=== PATIENT | female | born 2000 | race Caucasian/White ===

== ENCOUNTER 2022-02-27 16:03 | Emergency (ER) | payer OTHER, SELFPAY ==
[2022-02-27 17:03] VITALS: BP 146/92; PULSE 70; RESP 16; TEMP 36.7; O2SAT 100; BMI 23.3
--- NOTE | 2022-02-27 17:10 | ED_ITS ---
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 There is a single puncture wound that was made by a feral cat. Patient appears well. Patient's last tetanus shot was when she was 15. Patient appears in mild to no pain. Review of Systems General: Reports: 10 or more systems reviewed and unremarkable except in HPI and below Resp: Denies: dyspnea GI: Denies: abdominal pain Skin/Breast: Reports: other (Puncture wound left thumb) COUNTS INCLUDE 234 BEDS AT THE [facility] ED Female Reproductive History: Date of last menstrual period: 02/07/22 Physical Exam Const: COMMON NORMALS: alert Neck/C-Spine: COMMON NORMALS: full ROM Resp: COMMON NORMALS: normal respiratory effort Cardio: COMMON NORMALS: regular rate RATE: regular rate : COMMON NORMALS: Yes no CVA tenderness BLADDER/KIDNEY EXAM: Yes no CVA tenderness Back/Pelvis: COMMON NORMALS: no CVA tenderness Extremity: LEFT UPPER EXTREMITY: Yes hand & digits (Superficial puncture wound distal left thumb) Left hand and digits: Yes inspection, Yes palpation and Yes ROM Neuro: SENSORIUM/ORIENTATION: Yes alert Skin: COMMON NORMALS: no rashes or lesions noted GENERAL SKIN EXAM: no rashes or lesions noted Course Vital Signs: Vital signs: Vital Signs Temperature 98.1 F 02/27/22 17:03 Pulse Rate 70 02/27/22 17:03 Respiratory Rate 16 02/27/22 17:03 Blood Pressure 146/92 02/27/22 17:03 Pulse Oximetry 100 02/27/22 17:03 MDM - Animal Bite Medical Decision Making Patient comes in for a animal bite to the distal left thumb. On exam there is a superficial puncture wound to the thumb. Patient has normal range of motion. Vital signs are normal. Differential diagnosis includes not limited to puncture wound, animal bite, need for prophylaxis tetanus, need for postexposure rabies treatment. Patient was given rabies immunoglobulin based on 20 mg/kg weight, tetanus was updated, rabies vaccine dosing was started. Patient will be covered with Augmentin 1 tablet twice a day for 7 days for prophylaxis antibiotic. Encourage fluids rest and follow-up with primary care. Discharge Plan Discharge Patient Disposition: Home Clinical Impression: Cat bite Condition: Stable Prescriptions: New amoxicillin-pot clavulanate 875-125 mg tablet 1 tab PO BID Qty: 14 0RF Discharge Orders: Discharge ED (Routine); Ordered 02/27/22 Ordered By: David Urena Discharge Diet: Usual diet Discharge Activity: Resume usual activity Patient Instructions: Animal Bite (ED), Rabies (ED) Activity Restrictions/Additional Instructions: You will need to complete the rabies postexposure vaccine protocol for dosing on days 3, 7, and 14. Take antibiotics as directed twice a day for 7 days. Use acetaminophen and ibuprofen for pain. Follow-up with primary care for further instructions. Return to ER for new concerns. Coding Level of Care Code ED Recovery Collector for Dioni Fwd Exam Detailed
[2022-02-27] MEDS: amoxicillin-clav 875-125 mg Tablet 1 TAB PO (17:26)
[2022-02-27] MEDS: tetanus-dipt-pertussis 0.5 mL SDV IM (17:28)
[2022-02-27 17:41] VITALS: BP 146/92; PULSE 70; RESP 16; TEMP 36.7; O2SAT 100
[2022-02-27] MEDS: rabies vaccine 2.5 unit SDV IM (18:12)
[2022-02-27 18:48] VITALS: BP 119/74; PULSE 70; RESP 16; O2SAT 99
== END 2022-02-27 18:50 | disposition home or self-care (01) ==
PROVIDERS: Emergency Provider Nurse Practitioner Family
DX: S61.052A Open bite of left thumb without damage to nail, initial encounter (principal); W55.01XA Bitten by cat, initial encounter; Z23 Encounter for immunization; Z20.3 Contact with and (suspected) exposure to rabies; Z29.14 Encounter for prophylactic rabies immune globulin
CPT/HCPCS: 90375; 90471; 90675; 90715; 99283

== ENCOUNTER 2022-09-22 15:07 | Outpatient (CLI) | payer BC, SELFPAY ==
--- NOTE | 2022-09-22 | US_ITS ---
WS: [id number] EARLY OBSTETRICAL ULTRASOUND (<14 WEEKS). HISTORY: NORMAL ENCOUNTER FOR 1ST TRIMESTER COMPARISON: None available. Single intrauterine gestational sac is identified. Cardiac activity at 171 BPM. Yulee-rump length martínez sures 3.1 cm which corresponds to a gestation of 10w0d. Normal-appearing yolk sac and amnion demonstr ated. No subchorionic hemorrhage. No free fluid. Neither ovary is identified. US/US OB <= 14 weeks fetus [id number] IMPRESSION: 1. Single intrauterine gestation of 10 weeks 0 days and EDC of 04/20/2023. 2. Normal heart rate.
== END 2022-09-22 15:08 | disposition home or self-care (01) ==
PROVIDERS: PCP Family Medicine; Visit Provider Family Medicine
DX: Z34.01 Encounter for supervision of normal first pregnancy, first trimester (principal); Z3A.10 10 weeks gestation of pregnancy
CPT/HCPCS: 76801

== ENCOUNTER 2022-10-31 05:50 | Emergency (ER) | payer BC, MEDICAID, SELFPAY ==
[2022-10-31 05:56] VITALS: BP 140/74; PULSE 85; RESP 16; TEMP 36.7; O2SAT 99; BMI 22.4
--- NOTE | 2022-10-31 06:04 | ED_ITS ---
HPI - Abdominal Pain General: Chief Complaint: Abdominal Pain Stated Complaint: ABD Pain\Right Side 15 Wks Preg Time Seen by Provider: 10/31/22 05:57 Source: patient Mode of arrival: ambulatory History of Present Illness: 22-year-old female at 15 weeks 4 days gestation IUP confirmed by 10-week ultrasound. MD elicited complaint: abdominal pain Pertinent past history: constipation and other (15 weeks ) Onset (ago): hour(s) Location: RLQ Severity: mild Quality: cramping Radiation: none Exacerbating factors: nothing Relieving factors: nothing Associated Symptoms: Denies anorexia, belching, bloating, change in bowel habits, change in stool character, chills, coffee ground emesis, constipation, GI cramping, diarrhea, dyspepsia, dysuria, excessive flatus, fever(s), heartburn, hematochezia, hematuria, hematemesis, fecal incontinence, loose stools, melena, nausea, poor appetite, syncope and vomiting Review of Systems Const: Denies: fever(s) or chills ENMT: Denies: throat pain, ear or mastoid pain, nasal discharge or nasal congestion Card: Denies: syncope Resp: Denies: dyspnea, productive cough or non-productive cough GI: Reports: abdominal pain; Denies: nausea, vomiting, hematemesis, coffee ground emesis, heartburn, diarrhea, constipation, bloating, GI cramping, belching, excessive flatus, fecal incontinence, change in bowel habits, change in stool character, hematochezia or melena : Denies: flank pain, dysuria, urinary frequency, urinary urgency or hematuria Skin/Breast: Denies: rash or pruritus [facility] ED PFSH: Medical History (Updated 10/31/22 @ 08:18 by Sheng Gonsales DO) Recurrent UTI Second trimester Physical Exam Const: GENERAL APPEARANCE: cooperative and comfortable ORIENTATION/CONSCIOUSNESS: Yes awake, Yes oriented to person, Yes oriented to place and Yes oriented to time HENMT: COMMON NORMALS: normocephalic, atraumatic and hearing grossly normal bilaterally HEAD & SCALP: normocephalic and atraumatic Resp: COMMON NORMALS: normal respiratory effort, No retractions, No use of accessory muscles and clear to auscultation bilaterally AUSCULTATION: clear to auscultation bilaterally Cardio: COMMON NORMALS: regular rate, regular rhythm and No murmurs present (Cardio) RATE: regular rate RHYTHM: regular rhythm GI: COMMON NORMALS: No hepatosplenomegaly present AUSCULTATION: Yes normoactive bowel sounds PALPATION: Yes Tenderness to palpation present (GI) Details: RLQ, No Guarding due to palpation present (GI) and Yes No hepatospl enomegaly present Extremity: COMMON NORMALS: normal to inspection, capillary refill normal, no clubbing, cyanosis or edema, no calf tenderness and no pedal edema Neuro: SENSORIUM/ORIENTATION: Yes oriented to person, Yes oriented to place and Yes oriented to time Skin: COMMON NORMALS: no rashes or lesions noted GENERAL SKIN EXAM: no rashes or lesions noted Course Vital Signs: Vital signs: Vital Signs Temperature 98.1 F 10/31/22 05:56 Pulse Rate 85 10/31/22 05:56 Respiratory Rate 16 10/31/22 05:56 Blood Pressure 140/74 10/31/22 05:56 Pulse Oximetry 99 10/31/22 05:56 Oxygen Delivery Me thod 10/31/22 05:56 MDM - Abdominal Pain Medical Decision Making cath UA is negative initial cath UA was contaminated was repeated there was s igns of clue cells patient be treated for bacterial vaginosis. Abdominal exam not suggestive this, ultrasound did not identify did not notice any inflammatory reaction in that region. The white count is normal. Discharge patient home most likely round ligament pain treat the bacterial vaginosis follow-up with her primary OB. Medical Records I reviewed the patient's medical records. Lab Data I reviewed the patient's lab results. 10/31/22 06:00 10/31/22 06:00 Labs/Radiology: Radiology Impressions Appendix Ultrasound 10/31/22 06:50 IMPRESSION: Appendix is not identified. No secondary findings of appendicitis. Laboratory Results WBC 9.5 10^3/uL (4.5-13.0) 10/31/22 06:00 RBC 4.43 10^6/uL (4.1-5.3) 10/31/22 06:00 Hgb 13.1 g/dL (11.5-15.3) 10/31/22 06:00 Hct 39.2 % (37.0-47.0) 10/31/22 06:00 MCV 88.5 fl (81-99) 10/31/22 06:00 MCH 29.6 pg (28.0-34.0) 10/31/22 06:00 MCHC 33.4 g/dL (30.0-36.0) 10/31/22 06:00 RDW 12.4 % (12.1-15.1) 10/31/22 06:00 Plt Count 271 10^3/cmm (130-400) 10/31/22 06:00 MPV 9.4 fL (7.4-10.4) 10/31/22 06:00 Neut % (Auto) 67.9 % 10/31/22 06:00 Lymph % (Auto) 23.5 % 10/31/22 06:00 [place] % (Auto) 6.5 % 10/31/22 06:00 Eos % (Auto) 1.6 % 10/31/22 06:00 Baso % (Auto) 0.2 % 10/31/22 06:00 Neut # (Auto) 6.48 10^3/uL (1.8-8.0) 10/31/22 06:00 Lymph # (Auto) 2.2 10^3/uL (1.5-6.5) 10/31/22 06:00 [place] # (Auto) 0.6 10^3/uL (0.2-0.9) 10/31/22 06:00 Eos # (Auto) 0.2 10^3/uL (0.0-0.8) 10/31/22 06:00 Baso # (Auto) 0.0 10^3/uL (0.0-0.1) 10/31/22 06:00 Nucleated RBC % (auto) 0 % 10/31/22 06:00 Nucleated RBCs # 0.0 /100WBC 10/31/22 06:00 Sodium 138 mmol/L (136-145) 10/31/22 06:00 Potassium 3.9 mmol/L (3.5-5.1) 10/31/22 06:00 Chloride 104 mmol/L (98-107) 10/31/22 06:00 Carbon Dioxide 22 mmol/L (22-29) 10/31/22 06:00 Anion Gap 15.9 (5-19) 10/31/22 06:00 BUN 5 mg/dL (6-20) L 10/31/22 06:00 Creatinine 0.5 mg/dL (0.5-0.9) 10/31/22 06:00 GFR Calculation 157.3 mL/min (90-130) H 10/31/22 06:00 Glucose 90 mg/dL (65-115) 10/31/22 06:00 Calculated Osmolality 283 mOsm/kg (285-295) L 10/31/22 06:00 Calcium 9.4 mg/dL (8.5-10.5) 10/31/22 06:00 Total Bilirubin 0.3 mg/dL (0.15-1.2) 10/31/22 06:00 AST 18 U/L (0-32) 10/31/22 06:00 ALT 9 U/L (0-33) 10/31/22 06:00 Alkaline Phosphatase 45 U/L (35-105) 10/31/22 06:00 Total Protein 7.5 g/dL (6.6-8.7) 10/31/22 06:00 Albumin 4.2 g/dL (3.5-5.2) 10/31/22 06:00 Globulin 3.3 g/dL (1.3-4.6) 10/31/22 06:00 Urine Color Straw (Yellow) 10/31/22 07:30 Urine Appearance Clear (CLEAR) 10/31/22 07:30 Urine pH 8 (5-7) H 10/31/22 07:30 Ur Specific [place] 1.015 (1.005-1.030) 10/31/22 07:30 Urine Protein Neg (Negative) 10/31/22 07:30 Urine Glucose (UA) Norm (Normal) 10/31/22 07:30 Urine Ketones 1+ (Negative) H 10/31/22 07:30 Urine Blood Neg (Negative) 10/31/22 07:30 Urine Nitrate Negative (Negative) 10/31/22 07:30 Urine Bilirubin Neg (Negative) 10/31/22 07:30 Prot Sulfosalicylic Acd Negative (Negative) 10/31/22 07:30 Urine Urobilinogen Norm mg/dL (Negative) 10/31/22 07:30 Ur Leukocyte Esterase Negative (Negative) 10/31/22 07:30 Urine RBC 0-4 /hpf (0-2) H 10/31/22 06:41 Urine WBC 10-15 /hpf (0-5) H 10/31/22 06:41 Ur Squamous Epith Cells 25-40 /hpf (0-5) H 10/31/22 06:41 Amorphous Sediment Not Reportable 10/31/22 06:41 Urine Bacteria 2+ /hpf (NONE) H 10/31/22 06:41 Urine Mucus Trace /hpf 10/31/22 06:41 Discharge Plan Discharge Patient Disposition: Home Clinical Impression: Abdominal pain, Second trimester , Pain of round ligament, Bacterial vaginosis Condition: Stable Prescriptions: New metronidazole 500 mg tablet 500 mg PO BID 7 Days Qty: 14 0RF No Action RabAvert (PF) 2.5 unit suspension for reconstitution 2.5 unit IM ONCE Qty: 1 0RF Discharge Orders: Discharge ED (Routine); Ordered 10/31/22 Ordered By: Sheng Gonsales Referrals: Jovita Burkett DO [Primary Care Provider] - Discharge Diet: Usual diet Discharge Activity: Resume usual activity Patient Instructions: Abdominal Pain (ED), Opioid Safety, Pain Management Activity Restrictions/Additional Instructions: You are seen today for complaints of right-sided abdominal pain. Her physical exam was not suggestive of acute appendicitis there was no sign of an inflamed appendix on the ultrasound the remainder of your limited abdominal ultrasound was normal including activity and heart motion. The UA did not show signs of cystitis but the first UA done showed bacterial vaginosis. Recommend that you take metronidazole 1 p.o. twice daily for 7 days. Follow-up with your primary care cook [employer] food. Coding Level of Care Code ED Station Helper for Dioni Chan
[2022-10-31 06:13] LABS: Basophils % 0.2 %; Eosinophils # 0.2 10^3/uL (0.0-0.8); Eosinophils % 1.6 %; Hematocrit 39.2 % (37.0-47.0); Hemoglobin 13.1 g/dL (11.5-15.3); Lymphocytes # 2.2 10^3/uL (1.5-6.5); Lymphocytes % 23.5 %; Mean Corpuscular HGB Conc 33.4 g/dL (30.0-36.0); Mean Corpuscular Hemoglobin 29.6 pg (28.0-34.0); Mean Corpuscular Volume 88.5 fl (81-99); Mean Platelet Volume 9.4 fL (7.4-10.4); Monocytes # 0.6 10^3/uL (0.2-0.9); Monocytes % 6.5 %; Neutrophils # 6.48 10^3/uL (1.8-8.0); Neutrophils % 67.9 %; Nucleated Red Blood Cells % 0 %; Platelet Count 271 10^3/cmm (130-400); Red Blood Count 4.43 10^6/uL (4.1-5.3); Red Cell Distribution Width 12.4 % (12.1-15.1); White Blood Count 9.5 10^3/uL (4.5-13.0)
[2022-10-31 06:30] LABS: Alanine Aminotransferase 9 U/L (0-33); Albumin Level 4.2 g/dL (3.5-5.2); Alkaline Phosphatase 45 U/L (35-105); Anion Gap 15.9 (5-19); Aspartate Amino Transferase 18 U/L (0-32); Blood Urea Nitrogen 5 mg/dL (6-20); Calcium 9.4 mg/dL (8.5-10.5); Carbon Dioxide 22 mmol/L (22-29); Chloride 104 mmol/L (98-107); Globulin 3.3 g/dL (1.3-4.6); Glomerular Filtration Rate 157.3 mL/min (90-130); Glucose 90 mg/dL (65-115); Osmolality Calculated 283 mOsm/kg (285-295); Potassium 3.9 mmol/L (3.5-5.1); Sodium 138 mmol/L (136-145); Total Bilirubin 0.3 mg/dL (0.15-1.2); Total Protein 7.5 g/dL (6.6-8.7)
--- NOTE | 2022-10-31 06:50 | US_ITS ---
WS: [id number] ULTRASOUND SOFT TISSUES RIGHT lower quadrant. HISTORY: eval appendix COMPARISON: None available. TECHNIQUE: 2-D and color Doppler imaging is submitted. The appendix is not identified. No secondary findings of appendicitis. No free fluid or inflammatory mass or collection. US/US appendix [id number] IMPRESSION: Appendix is not identified. No secondary findings of appendicitis.
[2022-10-31 07:10] LABS: Glucose Urine UA Norm (Normal); Protein Urine Neg (Negative); Specific Gravity, Urine 1.005 (1.005-1.030); Urine Appearance Cloudy (CLEAR); Urine Color Straw (Yellow); pH Urine 8 (5-7)
[2022-10-31 07:11] LABS: Add Urine Culture? No; Add Urine Microscopic? YES; Bacteria Urine 2+ /hpf; Bilirubin Urine Neg (Negative); Blood Urine Neg (Negative); Ketones Urine Negative (Negative); Leukocyte Esterase Urine 2+ (Negative); Mucus Urine TRACE /hpf; Nitrate Urine Negative (Negative); RBC Urine 0-4 /hpf (0-2); Squamous Epithelial Cell Urine 25-40 /hpf (0-5); Sulfosalicylic Acid Urine Negative (Negative); Urobilinogen Urine Norm (Negative)
[2022-10-31 07:37] LABS: Add Urine Microscopic? NO; Charge for UA Resulting for Rev
[2022-10-31 07:54] LABS: Bilirubin Urine Neg (Negative); Blood Urine Neg (Negative); Glucose Urine UA Norm (Normal); Ketones Urine 1+ (Negative); Leukocyte Esterase Urine Negative (Negative); Nitrate Urine Negative (Negative); Protein Urine Neg (Negative); Specific Gravity, Urine 1.015 (1.005-1.030); Urine Appearance Clear (CLEAR); Urine Color Straw (Yellow); Urobilinogen Urine Norm (Negative); pH Urine 8 (5-7)
[2022-10-31 07:55] LABS: Sulfosalicylic Acid Urine Negative (Negative)
== END 2022-10-31 08:26 | disposition home or self-care (01) ==
PROVIDERS: Emergency Provider Family Medicine; PCP Family Medicine
DX: O26.892 Other specified pregnancy related conditions, second trimester (principal); R10.2 Pelvic and perineal pain; R10.9 Unspecified abdominal pain; O23.592 Infection of other part of genital tract in pregnancy, second trimester; Z3A.15 15 weeks gestation of pregnancy
CPT/HCPCS: 76705; 80053; 81001; 81003; 85025; 99284

== ENCOUNTER 2022-11-29 08:46 | Outpatient (CLI) | payer BC, MEDICAID, SELFPAY ==
--- NOTE | 2022-11-29 09:39 | US_ITS ---
WS: [id number] OB ultrasound, 11/29/2022 Clinical Data: FIRST , 2ND TRIMESTER/ANATOMY CHECK Comparison: OB ultrasound, 09/22/2022 Findings: There is a single intrauterine in the vertex presentation. The placenta is Anterior and gra de 0. There is a normal amount of amnionic fluid. The heart rate is 153 beats per minute. Measurements of growth and development: BPD: 4.8 cm 20 weeks 3 days HC: 18.1 cm 20 weeks 4 days AC: 14.9 cm 20 weeks 1 day FL: 3.2 cm 20 weeks 0 days The estimated weight is 336 grams; 12 ounces The estimated gestational age is 20w2d with an BRENDEN of approximately 04/16/2023. anatomy show a normal stomach, kidneys, bladder, cord insertion, three-vessel cord, entire spin e, four-chamber heart, LVOT, RVOT, upper lip, lateral cerebral ventricles, cerebellum and cisterna ma gna. The gender is male. US/US OB >= 14 weeks fetus [id number] Impression: 1. Single intrauterine in vertex presentation. 2. Estimated gestational age 20w2d with an BRENDEN of 04/16/2023. 3. heart rate 153 beats per minute.
== END 2022-11-29 08:47 | disposition home or self-care (01) ==
LOC: RAD 08:49
PROVIDERS: PCP Family Medicine; Visit Provider Family Medicine
DX: Z34.02 Encounter for supervision of normal first pregnancy, second trimester (principal); Z3A.20 20 weeks gestation of pregnancy
CPT/HCPCS: 76805

== ENCOUNTER 2023-04-09 13:50 | Outpatient (CLI) | payer BC, MEDICAID, SELFPAY ==
[2023-04-09 13:55] VITALS: BMI 28.8
[2023-04-09 14:00] VITALS: BP 135/86; PULSE 81
[2023-04-09 14:21] VITALS: BP 117/70; PULSE 72
[2023-04-09 14:41] VITALS: BP 122/74; PULSE 75
[2023-04-09 15:02] VITALS: BP 118/75; PULSE 83
[2023-04-09 15:21] VITALS: BP 130/84; PULSE 79
[2023-04-09 15:30] VITALS: BP 130/84; PULSE 79; RESP 16
[2023-04-18] VITALS (46 sets, daily range): BP systolic 117–143; BP diastolic 60–89; PULSE 72–120; RESP 16; TEMP 36.1–36.7; O2SAT 94–100
[2023-04-19] VITALS (22 sets, daily range): BP systolic 90–148; BP diastolic 50–84; PULSE 71–151; RESP 15–16; TEMP 36.3–37.3; O2SAT 88–99
== END 2023-04-09 15:00 | disposition home or self-care (01) ==
LOC: OPOB 13:55 → OBGYN 15:27
PROVIDERS: PCP Family Medicine; Visit Provider Family Medicine
DX: O26.899 Other specified pregnancy related conditions, unspecified trimester (principal); Z3A.00 Weeks of gestation of pregnancy not specified; R10.9 Unspecified abdominal pain
CPT/HCPCS: 59025; 99211

== ENCOUNTER 2023-04-18 10:34 | Inpatient (IN) | payer BC, MEDICAID, SELFPAY ==
[2023-04-18 09:39] VITALS: RESP 18; TEMP 36.6
[2023-04-18 09:40] VITALS: BMI 28.6
[2023-04-18 09:46] VITALS: BP 134/84; PULSE 89; RESP 18; TEMP 36.6
[2023-04-18 10:10] VITALS: BP 127/79; PULSE 86
[2023-04-18 10:31] VITALS: RESP 16
[2023-04-18 11:02] LABS: Basophils % 0.3 %; Eosinophils # 0.1 10^3/uL (0.0-0.8); Hematocrit 33.8 % (36-47); Lymphocytes # 2.1 10^3/uL (1.5-6.5); Lymphocytes % 17.1 %; Mean Corpuscular HGB Conc 32.8 g/dL (30-55); Mean Corpuscular Hemoglobin 28.1 pg (27-33); Mean Corpuscular Volume 85.6 fl (85-98); Mean Platelet Volume 10.5 fL (7.4-10.4); Monocytes % 8.1 %; Neutrophils # 8.77 10^3/uL (1.8-8.0); Nucleated Red Blood Cells % 0 %; Platelet Count 267 10^3/cmm (157-399); Red Blood Count 3.95 10^6/uL (3.85-5.65); Red Cell Distribution Width 14.1 % (12.1-15.1); White Blood Count 12.03 10^3/uL (4.5-13.0)
[2023-04-18 11:09] VITALS: BP 117/74; PULSE 103
[2023-04-18] MEDS: dextrose 5%-lactated ringers 1,000 ML 125 ML IV (12:49)
--- NOTE | 2023-04-18 13:24 | P.HP_ITS ---
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 course compli cated by 3rd trimester anemia on iron supplementation. Reports contractions about 5/10 on pain scale starting after she started leaking fluids. Denies vaginal bleeding. Good movement. care was good and starting in the first trimester. Does feel contractions have been getting a little stronger. States she is wanting to avoid starting pitocin because she has heard you pretty much have to get an epidural if pitocin is started. Present Details : 1 Para: 0 Labs Blood type OB HPI: A (+) positive Rubella: Immune RPR: Negative GBS: Negative HBsAG: Negative Other Lab Information: HCV Ab negative RPR NR Rubella immune Antibody screen negative HIV NR GC/Chlam Negative 1st trimester H/H 14.0/41.1 UCx no growth Toxoplasma IgG and IgM negative 1hr GTT 119 3rd trimester H/H 10.7/30.9 Review of Systems Const: Denies: fever(s) or chills Card: Denies: chest pain Resp: Denies: dyspnea or productive cough Medications/Allergies Home Medications Medication Instructions Recorded Confirmed Last Taken Type ferrous sulfate 325 mg (65 mg 325 mg PO QTUTHSASU 04/09/23 04/18/23 04/16/23 09:00 History iron) tablet (Iron (ferrous sulfate)) vit no.95-ferrous 1 tab PO DAILY 04/09/23 04/18/23 04/17/23 20:00 History fumarate 28 mg-folic acid 800 mcg tablet () Allergies Allergy/AdvReac Type Severity Reaction Status Date / Time No Known Allergies Allergy Verified 10/31/22 05:59 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: Medical History (Updated 04/18/23 @ 14:04 by Jovita Burkett DO) Recurrent UTI Second trimester History History History 1 Term 0 0 Miscarriages/Ectopic 0 Living Children 0 Vitals/I&O/Wt Last Vital Signs Temp 97.9 F 04/18/23 09:46 Pulse 103 H 04/18/23 11:09 Resp 16 04/18/23 10:31 BP 117/74 04/18/23 11:09 O2 Del Method Room Air 04/18/23 11:34 Weight last 48 hrs Weight 172 lb Physical Exam Const: COMMON NORMALS: no acute distress, healthy appearing, alert and well nourished OTHER: moderate discomfort with contractions Resp: COMMON NORMALS: normal respiratory effort and clear to auscultation bilaterally Cardio: COMMON NORMALS: regular rate, regular rhythm, S1 normal heart sound present, S2 normal heart sound present and No murmurs present (Cardio) : OTHER: gravid and size appropriate to gestational age Extremity: NARRATIVE EXTREMITY EXAM: No LE pitting edema Data 04/18/23 10:50 A&P Assessment and plan (1) Spontaneous rupture of amniotic membranes: (2) Term : Plan 22 yo at 39w5d admitted for SROM. Category I FHT, minimal progression on admission over 2 hours. Routine CBC, IV. Recommended initiation of pitocin given ROM status- discussed risks and benefits of prolonged ROM and delaying pitocin initiation. At this time patient prefers to wait to start pitocin and declines pitocin initiation. No GBS ppx as GBS negative. Discussed ambulating, using birthing ball as tolerated. Intermittent EFM as long as Category I FHT and prior to initiation of pitocin. Fentanyl protocol, epidural if desired- she is wanting to avoid epidural if possible. Plan to recheck at 4pm and start pitocin if no change- discussed with patient and she is agreeable to proceed with plan. Attestations Medical Necessity Statement*: Hope A Warner's hospital stay will require greater than 2 midnights for routine labor and delivery and care. Coding Level of Care Code Acute Code for Chg Fwd Diagnoses Spontaneous rupture of amniotic membranes Term Z34.90
[2023-04-18] MEDS: oxytocin 30 UNIT/500 ML BAG IV (17:10)
[2023-04-18 20:04] VITALS: RESP 16; O2SAT 99
[2023-04-18] MEDS: fentaNYL 50 mcg/mL INJ 2mL IVP (20:04)
[2023-04-18] MEDS: lactated ringers 1,000 ML 999 ML IV ×2 (21:20→22:23)
--- NOTE | 2023-04-18 22:44 | P.ANESASSM_ITS ---
Pre-Anesthetic Assessment Height/Weight: Height 1.65 m Weight 78.018 kg Temp Pulse Resp BP Pulse Ox O2 Del Method 97.9 F 103 H 16 117/74 99 Room Air 04/18/23 09:46 04/18/23 11:09 04/18/23 20:04 04/18/23 11:09 04/18/23 20:04 04/18/23 11:34 Preop Diagnosis: Labor pain CARINA Was Beta Christiana taken within 24 hours: N/A Was Clonidine taken within 24 hours: N/A Social No alcohol and No tobacco Exam alert, oriented x 3, clear to auscultation bilaterally and regular rate & rhythm Airway Submandibular: within normal limits Cervical ROM: within normal limits Mallampati: Class II Dentition: full History/ROS No significant history except as noted and No significant complaints Pulmonary None reported CV/HEM None reported Hepatic None reported GI None reported Metabolic None reported Musc/skel None reported Neuropsych None reported Anesthetic Plan ASA status: 2 Anesthesia: Anesthesia Evaluation and Regional (specify below) (CARINA) Risk of > 500 ml blood loss (7ml/kg in children): No Medications/Allergies Home Medications Medication Instructions Recorded Confirmed Last Taken Type ferrous sulfate 325 mg (65 mg 325 mg PO QTUTHSASU 04/09/23 04/18/23 04/16/23 09: 00 History iron) tablet (Iron (ferrous sulfate)) vit no.95-ferrous 1 tab PO DAILY 04/09/23 04/18/23 04/17/23 20:00 History fumarate 28 mg-folic acid 800 mcg tablet () Allergies Allergy/AdvReac Type Severity Reaction Status Date / Time No Known Allergies Allergy Verified 10/31/22 05:59 Current Medications Generic Name Dose Route Start Last Admin Trade Name Freq PRN Reason Stop Dose Admin Fentanyl 25 - 100 mcg 04/18/23 10:31 04/18/23 20:04 Fentanyl 50 Mcg/Ml Inj 2ml IVP 25 mcg Q1H PRN Administration SEVERE PAIN Dextrose/Lactated Ringer's 1,000 mls @ 125 mls/hr 04/18/23 10:45 04/18/23 21:20 Dextrose 5%-Lactated Ringers IV 0 mls/hr .Q8H MURTAZA Infusion Oxytocin 30 unit in 500 mls @ 1 mls/hr 04/18/23 12:30 04/18/23 19:55 Pitocin IV 3 milliunit/min .Q24H MURTAZA 3 mls/hr Titration Protocol 1 MILLIUNIT/MIN Lactated Ringer's 1,000 mls @ 999 mls/hr 04/18/23 21:12 04/18/23 22:23 Lactated Ringers IV 999 mls/hr .Q1H1M PRN Administration See label comments PFSH Anesthesia Medical History (Updated 04/18/23 @ 14:04 by Jovita Burkett DO) Recurrent UTI Second trimester Female Reproductive History : 1 Data Anesthesia 04/18/23 10:50 Short CBC 04/18/23 Range/Units 10:50 WBC 12.03 (4.5-13.0) 10^3/uL Hgb 11.10 L (12.4-14.8) g/dL Hct 33.8 L (36-47) % MCV 85.6 (85-98) fl Plt Count 267 (157-399) 10^3/cmm Neut % (Auto) 73.0 % Neut # (Auto) 8.77 H (1.8-8.0) 10^3/uL Cardiac Studies: No Data to Display
--- NOTE | 2023-04-18 22:46 | P.ANES_ITS ---
Anesthesia Procedures Procedure/Date: 04/18/23 Epidural: Time Out Performed: Yes Consents Signed: Procedure Consent Consent: from patient, risks and benefits reviewed and patient agrees to proceed Lumbar Level: L3-L4 Epidural position: sitting Epidural procedure: sterile prep of area, 1% lidocaine to numb the area, 18 g needle, neg for parest hesia, test dose given, 1.5% xylocaine 1:200k epi (5cc), 0.2% Ropivacaine bolus ml (4 cc and Fentanyl 100 mcg), placed PCEA, no systemic response, sterile dressing applied, L.U.D. no apparent complications and 0.2% Ropiavacaine @ mls/hr (10cc/hour) Additional Comments: LIZ at 7cm. Cath placed 2.5 cm into space. Sterile drsg and taped. Pt tolerated well.
[2023-04-18] MEDS: ROPivacaine syringe 100 MG/50 ML SYRINGE 10 MG EPIDURAL (22:51)
[2023-04-19] VITALS (8 sets, daily range): BP systolic 115–129; BP diastolic 72–82; PULSE 72–95; RESP 13–18; TEMP 36.6–36.8; O2SAT 96–98
[2023-04-19] MEDS: oxytocin 30 UNIT/500 ML BAG 600 UNIT IV (01:32)
--- NOTE | 2023-04-19 01:55 | P.PCNOB_ITS ---
Delivery Note: Date of delivery: April 19, 2023 Pre-delivery diagnoses: Spontaneous rupture of membranes Term Post-delivery diagnoses: Delivery of viable male Procedure: Spontaneous Vaginal Delivery Delivering Physician: Jovita Burkett DO Estimated blood loss (mL): 250 Pre-Delivery Course: Admitted after SROM at approximately 3 AM on 04/18/2023. On admission with every 3-8 minute contractions and category 1 FHT. After admission patient with minimal climate change analyst the course of 2 hours and at that time recommended initiation of Pitocin. Patient declined and subsequently had minimal climate change analyst the next 4 to 6 hours. At that time patient was agreeable to initiation of low-dose Pitocin. Following initiation of Pitocin patient progressed appropriately to complete. Delivery: Patient progressed to complete. Patient placed in lithotomy position. Patient pushed with adequate effort. Head delivered in OA position, loose nuchal cord was present and reduced. Noted as well to deliver with right hand by pentecostal. Shoulders and rest of body delivered without difficulty with adequate epidural anesthesia. Mouth and nares bulb suctioned. Infant placed on maternal abdomen. Cord clamped and cut after 2-minute delay at maternal request. Placenta spontaneously delivered and intact. Pitocin started. Fundus was noted to become firm with massage. The vagina and cervix were inspected and midline posterior vaginal sulcus with small second-degree laceration was noted. Repaired with 3-0 Vicryl suture. 2 small lateral wall abrasions were noted however are hemostatic and not requiring repair. Fundus was again noted to be firm however with small trickle of bleeding. Lower uterine segment was swept free of clots with improvement in bleeding following. Male born at 1:27 am on [birth year] with 10/10 weighing 3915g and measuring 22.25 in length Placenta noted to be intact with centrally inserted umbilical cord three-vessel cord. Complications: Maternal none none History History History 1 Term 0 0 Miscarriages/Ectopic 0 Living Children 0 Coding Level of Care Code Acute Code for Chg Fwd Diagnoses
[2023-04-19] MEDS: docusate sodium 100 mg Capsule PO ×2 (09:04→18:02)
[2023-04-19] MEDS: ibuprofen 800 mg tablet PO ×3 (09:04→20:34)
[2023-04-19] MEDS: prenatal vitamin Capsule 1 CAP PO (09:04)
[2023-04-19 14:22] LABS: Hematocrit 29.1 % (36-47); Mean Corpuscular Hemoglobin 28.4 pg (27-33); Mean Corpuscular Volume 86.1 fl (85-98); Mean Platelet Volume 10.4 fL (7.4-10.4); Platelet Count 229 10^3/cmm (157-399); Red Blood Count 3.38 10^6/uL (3.85-5.65); Red Cell Distribution Width 14.6 % (12.1-15.1); White Blood Count 23.26 10^3/uL (4.5-13.0)
[2023-04-19] MEDS: benzocaine-menthol 78 gm Canister 1 SPRAY TOPICAL (20:34)
[2023-04-20 05:00] VITALS: BP 119/74; PULSE 91; RESP 18; TEMP 36.5; O2SAT 97
--- NOTE | 2023-04-20 08:01 | PM.OBGYDC ---
Discharge Providers EXCHANGE CONSULTANT Date of Admission: 04/18/23 10:34 Date of Discharge: 04/20/23 Attending Provider at Admission: Jovita Burkett DO Attending Provider at Discharge: Jovita Burkett DO Primary Care Provider: Jovita Burkett DO Diagnoses at Discharge Discharge Diagnosis (1) Spontaneous vaginal delivery: Status: Acute Reason for Visit Reason for Visit: possible rupture of membranes Hospital Course Hospital Course Pre-Delivery Course:?? Admitted after SROM at approximately 3 AM on 04/18/2023.? On admission with every 3-8 minute contractions and category 1 FHT.? After admission patient with minimal shredding machine knife changer the course of 2 hours and at that time recommended initiation of Pitocin.? Patient declined and subsequently had minimal shredding machine knife changer the next 4 to 6 hours.? At that time patient was agreeable to initiation of low-dose Pitocin.? Following initiation of Pitocin patient progressed appropriately to complete. Delivery:?? Patient progressed to complete. Patient placed in lithotomy position. Patient pushed with adequate effort. Head delivered in OA position, loose nuchal cord was present and reduced.? Noted as well to deliver with right hand by jehovah's witness.? Shoulders and rest of body delivered without difficulty with adequate epidural anesthesia. Mouth and nares bulb suctioned. placed on maternal abdomen. Cord clamped and cut after 2-minute delay at maternal request.? Placenta spontaneously delivered and intact. Pitocin started. Fundus was noted to become firm with massage. The vagina and cervix were inspected and midline posterior vaginal sulcus with small second-degree laceration was noted.? Repaired with 3-0 Vicryl suture.? 2 small lateral wall abrasions were noted however are hemostatic and not requiring repair.? Fundus was again noted to be firm however with small trickle of bleeding.? Lower uterine segment was swept free of clots with improvement in bleeding following. Male born at 1:27 am on [birth year] with 10/10 weighing 3915g and measuring 22.25 in length Placenta noted to be intact with centrally inserted umbilical cord? three-vessel cord. Complications: Maternal none ? none course: Patient underwent on 04/19/23. course was uncomplicated. Following delivery patient ambulated well, tolerated a normal diet without nausea or vomiting. Pain was well on PO medications, well, no leg/calf pain, no calf/leg swelling, normal urination, passing gas. She has been afebrile throughout hospital stay. Vaginal bleeding thin lochia and decreasing. hemoglobin 9.6 from 11.1 on admission. She is continued on once daily iron supplementation. Follow-up planned for 2 and 6 weeks . Warning signs for endometritis, pre-eclampsia, DVT/PE, mastitis were reviewed, discussed additional warning signs including increased vaginal bleeding, worsening abdominal pain. Pelvic rest and activity precautions reviewed as well. She is discharged on 04/20/23 in stable condition. Information Peripartum Data: Delivery Method: Vaginal Physical Exam Const: COMMON NORMALS: no acute distress, healthy appearing, alert and well nourished OTHER: moderate discomfort with contractions Resp: COMMON NORMALS: normal respiratory effort and clear to auscultation bilaterally AUSCULTATION: clear to auscultation bilaterally Cardio: COMMON NORMALS: regular rate, regular rhythm, S1 normal heart sound present, S2 normal heart sound present and No murmurs present (Cardio) RATE: regular rate RHYTHM: regular rhythm HEART SOUNDS: S1 normal heart sound present and S2 normal heart sound present : OTHER: uterine fundus is firm and below the umbilicus Extremity: NARRATIVE EXTREMITY EXAM: trace LE pitting edema, no calf TTP Neuro: SENSORIUM/ORIENTATION: Yes alert Urinary Catheter Management: Butt: Cath Placed During This Visit: yes Urinary Catheter Date of Insertion: 04/18/23 Urinary Catheter Time of Insertion: 23:30 History History History 1 Term 1 0 Miscarriages/Ectopic 0 Living Children 1 Discharge Data Studies Completed and Pending Laboratory Results WBC 23.26 10^3/uL (4.5-13.0) H 04/19/23 13:50 RBC 3.38 10^6/uL (3.85-5.65) L 04/19/23 13:50 Hgb 9.60 g/dL (12.4-14.8) L 04/19/23 13:50 Hct 29.1 % (36-47) L 04/19/23 13:50 MCV 86.1 fl (85-98) 04/19/23 13:50 MCH 28.4 pg (27-33) 04/19/23 13:50 MCHC 33.0 g/dL (30-55) 04/19/23 13:50 RDW 14.6 % (12.1-15.1) 04/19/23 13:50 Plt Count 229 10^3/cmm (157-399) 04/19/23 13:50 MPV 10.4 fL (7.4-10.4) 04/19/23 13:50 Neut % (Auto) 73.0 % 04/18/23 10:50 Lymph % (Auto) 17.1 % 04/18/23 10:50 [place] % (Auto) 8.1 % 04/18/23 10:50 Eos % (Auto) 1.0 % 04/18/23 10:50 Baso % (Auto) 0.3 % 04/18/23 10:50 Neut # (Auto) 8.77 10^3/uL (1.8-8.0) H 04/18/23 10:50 Lymph # (Auto) 2.1 10^3/uL (1.5-6.5) 04/18/23 10:50 [place] # (Auto) 1.0 10^3/uL (0.2-0.9) H 04/18/23 10:50 Eos # (Auto) 0.1 10^3/uL (0.0-0.8) 04/18/23 10:50 Baso # (Auto) 0.0 10^3/uL (0.0-0.1) 04/18/23 10:50 Nucleated RBC % (auto) 0 % 04/18/23 10:50 Nucleated RBCs # 0.0 /100WBC 04/18/23 10:50 Vitals Last Vital Signs Temp 97.7 F 04/20/23 05:00 Pulse 91 04/20/23 05:00 Resp 18 04/20/23 05:00 BP 119/74 04/20/23 05:00 Pulse Ox 97 04/20/23 05:00 O2 Del Method Room Air 04/20/23 05:00 Discharge Plan Discharge Patient Disposition: Home Condition: Stable Prescriptions: New docusate sodium 100 mg Capsule 100 mg PO BID Qty: 60 0RF ibuprofen 800 mg Tablet 800 mg PO TID Qty: 90 0RF Continued ferrous sulfate [Iron (ferrous sulfate)] 325 mg (65 mg iron) Tablet 325 mg PO [id number] Rx Instructions: TAKES TWICE A WEEK PNV cmb#95-ferrous fumarate-FA [] 28 mg iron- 800 mcg tablet 1 tab PO DAILY Discharge Orders: Discharge Order (Routine); Ordered 04/20/23 Ordered By: Jovita Burkett Referrals: Jovita Burkett DO [Primary Care Provider] - 05/03/23 1:00 pm (6 week post-: 05/31/23) Discharge Diet: Regular Discharge Activity: Increase activity as tolerated Patient Instructions: Depression (DC), Bleeding (DC), Preeclampsia and Eclampsia After Delivery (GEN), Hemorrhage (DC), OB Discharge Report, OB Food/Drug Interaction Guide, OB Care at Home, Opioid Safety, OB Home Care, OB Vaginal Deliveries Activity Restrictions/Additional Instructions: Pelvic rest for 6 weeks. Follow-up at [address] Burkett. Discharge Attestations EXCHANGE CONSULTANT Time Spent in Discharge Care*: less than 30 min Coding Level of Care Code Acute Code for Chg Fwd Diagnoses Spontaneous vaginal delivery O80
[2023-04-20] MEDS: prenatal vitamin Capsule 1 CAP PO (08:40)
[2023-04-20] MEDS: ibuprofen 800 mg tablet PO (08:40)
[2023-04-20] MEDS: ferrous sulfate EC 325 mg Tablet PO (08:40)
[2023-04-20] MEDS: docusate sodium 100 mg Capsule PO (08:40)
[2023-04-20 10:15] VITALS: BP 128/86; PULSE 106; RESP 15; TEMP 37.2; O2SAT 97
[2023-04-20 11:10] VITALS: BP 128/86; PULSE 106; RESP 15; TEMP 37.2; O2SAT 97
--- NOTE | 2023-04-23 10:57 | ANE.PACU2 ---
Inpatient post-anesthesia follow up: Airway intact: Yes Vital signs: Temperature 98.9 F Pulse Rate 106 Respiratory Rate 15 Blood Pressure 128/86 Pulse Oximetry 97 Oxygen Delivery Me thod Room Air Oxygen Flow Rate Fraction of Inspir ed Oxygen Hydration adequate: Yes Nausea and vomiting: No Pain level: 2 Mental status: Baseline
== END 2023-04-20 11:20 | disposition home or self-care (01) | DRG 807 ==
LOC: OPOB 10:34 → OBGYN 10:34
PROVIDERS: Admitting Provider Family Medicine; PCP Family Medicine; Visit Provider Family Medicine
DX: O99.02 Anemia complicating childbirth (principal); Z37.0 Single live birth; O69.81X0 Labor and delivery complicated by cord around neck, without compression, not applicable or unspecified; O70.1 Second degree perineal laceration during delivery; Z3A.39 39 weeks gestation of pregnancy; D64.9 Anemia, unspecified
CPT/HCPCS: 36415; 51702; 59025; 59409; 83986; 85025; 85027; 96374; 96376; 99211; J2590; J2795; J3010; J7120; J7121